=== PATIENT | male | born 1950 | race Caucasian/White ===

== ENCOUNTER 2024-02-22 22:03 | Emergency (ER) | payer OTHER ==
[2024-02-22 22:52] LABS: Hematocrit 19.5 % (39.6-49.0); Hemoglobin 6.8 g/dL (13.6-17.9); Nucleated Red Blood Cells % 0.3 % (0-0)
[2024-02-22 22:57] LABS: Absolute Lymphocytes (CBC) 0.2 K/uL (0.7-4.9); Absolute Monocytes 0.4 K/uL (0.1-1.3); Absolute Neutrophil 0.7 K/uL (1.8-8.0); Basophils % 0.1 % (0-1.3); Eosinophils % 0.9 % (0-4.4); MCH 28.3 pg (27.0-35.0); MCHC 34.9 g/dL (32.0-36.0); MCV 80.9 fL (80-100); MPV 6.8 fL (7.6-11.3); Monocytes % 27.2 % (3.3-12.3); Neutrophils % 53.8 % (41.7-73.7); Platelets 149 thou/uL (152-406); RBC Red Blood Cell Count 2.41 M/uL (4.33-5.43); Red Cell Distribution Width 21.5 % (12.1-15.2)
[2024-02-22 23:01] LABS: PT Prothrombin Time 18.8 SECONDS (9.4-12.5); PTT, Activated Partial Thromb 30.9 SECONDS (24.3-36.9); Protime INR 1.7
[2024-02-22 23:13] LABS: Albumin 2.2 g/dL (3.4-5.0); Albumin/Globulin Ratio 0.6 (1.1-1.8); Anion Gap 12.2 mEq/L (5.0-15.0); Bilirubin Total 0.7 mg/dL (0.2-1.0); Protein, Total 6.2 g/dL (6.4-8.2)
[2024-02-22 23:17] LABS: Potassium 4.2 mEq/L (3.5-5.1)
--- OUTSIDE RECORDS SUMMARY | 2024-02-22 23:26 | XMS REPORT | Continuity of Care Document ---
Author Name Unknown Address [address] [facility] [address] [place] [address] [facility] Address [address] [facility] [place] [address] Care Team Providers Care Software Computer Specialist Name Role Phone Cass VILLARREAL, Meek Vigil Primary Care Physician [phone] Charlee Hayes MD Attending Clinician [phone] Winnie Burnham MD Attending Clinician [phone] Preeti PABON, Westley Martin Attending Clinician Guanako Cazares [facility], Roxie Attending Clinician Tyrone Kaba MD Attending Clinician [phone] Rehreruthie DO, Rajat Oliveira Attending Clinician + [phone] Liliana Kim DO Attending Clinician [phone] Carlos VILLARREAL, Maksim Newell Attending Clinic jerrell Ely Hernandez MD Attending Clinician [phone] Carlos [facility], Brenda Begum Attending Clinicia n Joleen Rendon RN, Renetta Attending Clinician Unavailable Charles VILLARREAL, Victor Hugo Kennedy Attending Clinician [phone] Katya Marquez Attending Clinician Unavailab Humaira PABON, Jennifer Attending Clinician Unavailable Archana LIEBERMAN, Sandra Attending Clinician Mercedes Calixto MD PhD, Gale Attending Clinician [phone] Jonh Bacon MD Attending Clinician [phone] Catarino Kim MD Attending Clinician [phone] Kenya Duran MD Attending Clinician [phone] Paco Shoemaker MD Attending Clinician [phone] Jaswinder Staples MD Attending Clinician [phone] Tommy Larose MD Attending Clinician + [phone] Meek Odell MD Attending Clinician [phone] Ondina Heredia Attending Clinician Unavailable Jennifer Oviedo MA Attending Clinician Unavailable LILIANA KIM Admitting Clinician Unavailable CATARINO KIM Admitting Clinician Unavailable Payers Payer Name Policy Type Policy Number Effective Date Expirati on Date Source Problems Condition Name Condition Details Condition Category Status Onset Date Resolution Date Last Treatment Date Treating Clinician Comments Source Paroxysmal atrial fibrillati on Paroxysmal atrial fibrillati on Disease Active 2023-05 0 00:00: [address] Nonrheumat ic aortic valve stenosis Nonrheumat ic aortic valve stenosis Disease Active 2023-05 0-14 00:00: [address] ILD (interstit ial lung disease) ILD (interstit ial lung disease) Disease Active 01-27 00:00: [address] Lung cancer Lung cancer Disease Active 9- 00:00: [address] SOB (shortness of breath) SOB (shortness of breath) Disease Active 01-23 00:00: [address] 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 MARIO total occludedL IC 60% [facility] TIA (transient ischemic attack) TIA (transient ischemic attack) Disease Active 1- 00:00: [address] Social History Social Habit Start Date Stop Date Quantity Comments Source Sexual orientation H ailyn Dumont History of Social function 2024-02-16 00:00:00 2024-02-16 00:00:00 Jeronimo Dumont Tobacco use and exposure 2024-02-12 00:00:00 2024-02-12 00:00:00 Smokeless tobacco non-user Jeronimo Dumont Cigarettes smoked current (pack per day) - Reported 2024-02-12 00:00:00 2024-02-12 00:00:00 Jeronimo Dumont Cigarette pack-years 2024-02-12 00:00:00 2024-02-12 00:00:00 Jeronimo Dumont Alcoholic beverage intake 2024-02-12 00:00:00 2024-02-12 00:00:00 Current drinker of alcohol (finding) Jeronimo Dumont Alcohol intake 2023-01-11 00:00:00 2023-01-11 00:00:00 .14 /d Jeronimo Dumont Alcohol Comment 2022-02-10 00:00:00 2022-02-10 00:00:00 daily Jeronimo Dumont History of tobacco use 1983-11-20 00:00:00 2018-11-19 00:00:00 Current smoker Jeronimo Dumont Sex assigned at 1950 00:00:00 1950 00:00:00 Jeronimo Dumont Smoking Status Start Date Stop Date Source Ex-smoker 2024-02-12 00:00:00 2024-02-12 00:00:00 H ailyn Dumont Medications Ordered Medication Name Filled Medication Name Start Date Stop Date Current Medication? Ordering Clinician Indication Dosage Frequency Signature (SIG) Comments Components Source ezetimibe (ZETIA) 10 mg tablet 2023-05 18:15: 05 02-11 00:00 :00 No 10mg QD Take 1 tablet (10 mg total) by mouth daily. Jeronimo Rankin aspirin (ECOTRIN) 81 MG enteric coated tablet 2023-05 18:14: 58 02-11 00:00 :00 No 81mg QD Take 1 tablet (81 mg total) by mouth daily. Jeronimo Rankin st fexofenadin e HCl (MUCINEX ALLERGY ORAL) 2023-05 09:20: 30 Yes Q.5D Take by mouth 2 (two) times a day as needed. [facility] PACLItaxel (TAXOL) 6 mg/mL chemo injection 2023-05 014 09:20: 30 Yes Q21D Infuse into a venous catheter every 21 days. [facility] benzonatate (TESSALON) 200 MG capsule 2023-05 00:00: 00 Yes 200mg Q.[id number] 3D Take 1 capsule (200 mg total) by mouth 3 (three) times a day as needed. [facility] ergocalcife rol, vitamin D2, (VITAMIN D2 ORAL) 2023-05 16:10: 00 Yes 1{capsu le} QD Take 1 capsule by mouth daily. [facility] amIODarone (PACERONE) 200 MG tablet 2023-05 00:00: 00 03-02 23:59 :00 Yes 200mg QD Take 1 tablet (200 mg total) by mouth daily for 30 days. [facility] rivaroxaban (XARELTO) 20 mg tablet 2023-05 16:10: 08 01-30 00:00 :00 No 20mg QD Take 1 tablet (20 mg total) by mouth daily. [facility] therapeutic multivitami n (THERAGRAN) tablet 2023-05 16:10: 04 Yes 1{tbl} QD Take 1 tablet by mouth daily. [facility] apixaban (ELIQUIS) 2.5 mg tablet 2023-05 00:00: 00 Yes 2.5mg Q.5D Take 1 tablet (2.5 mg total) by mouth 2 (two) times a day. [facility] rosuvastati n (CRESTOR) 20 mg tablet 2023-05 00:00: 00 01-30 23:59 :00 Yes 20mg QD Take 1 tablet (20 mg total) by mouth daily. [facility] metoprolol succinate XL (TOPROL-XL) 25 mg 24 hr tablet 2023-05 00:00: 00 01-30 23:59 :00 Yes 25mg QD Take 1 tablet (25 mg total) by mouth daily. [facility] simvastatin (ZOCOR) 80 MG tablet 2023-05 00:00: 01-30 00:00 :00 No 80mg QD Take 1 tablet (80 mg total) by mouth nightly for 120 days. Jeronimo Rankin alcohol swabs (Alcohol Pads) pads, medicated 2023-05 00:00: 00 Yes Use 1 test strip 3 times per day for glucose testing Jeronimo [facility] lancets 33 gauge misc 2023-05 00:00: 00 Yes TIA (transient ischemic attack) Use 1 lancet 3 times per day for glucose testing [place] [facility] blood sugar diagnostic strips (glucose blood) strip test strips 2023-05 00:00: 00 Yes TIA (transient ischemic attack) Use with glucometer 3 times a day Jeronimo Woodgerald [facility] metFORMIN (GLUCOPHAGE ) 500 mg tablet 2023-05 00:00: 00 Yes 500mg Q.5D Take 1 tablet (500 mg total) by mouth 2 (two) times a day with meals. [facility] blood-gluco se meter kit 2023-05 00:00: 00 01-29 23:59 :00 Yes TIA (transient ischemic attack) Use as instructed Jeronimo Woodgerald [facility] ondansetron ODT (ZOFRAN-ODT ) 8 MG disintegrat ing tablet 01-28 00:00: 00 02-27 23:59 :00 Yes CINV (chemothera py-induced nausea and vomiting) 8mg Q8H Dissolve 1 tablet (8 mg total) on the tongue every 8 (eight) hours as needed for nausea or vomiting for up to 30 days. [facility] prochlorper azine (Compazine) 5 MG tablet 01-28 00:00: 00 02-27 23:59 :00 Yes 5mg Q6H Take 1 tablet (5 mg total) by mouth every 6 (six) hours as needed for nausea or vomiting for up to 30 days. Jeronimo Woodgerald [facility] doxycycline (VIBRAMYCIN ) 100 MG capsule 01-23 18:42: 11 01-23 00:00 :00 No 100mg Q.5D Take 1 capsule (100 mg total) by mouth 2 (two) times a day. [facility] codeine-gua ifenesin (GUAIFENESI N AC) 10-100 mg/5 mL liquid 01-22 00:00: 00 02-11 00:00 :00 No chronic pain 5mL Q.[id number] 3D Take 5 mL by mouth 3 (three) times a day as needed for cough .acute pain, chronic pain. [facility] HYDROcodone -acetaminop hen (NORCO) 5-325 mg per tablet 01-11 00:00: 00 02-11 00:00 :00 No chronic pain 1{tbl} Q8H Take 1 tablet by mouth every 8 (eight) hours as needed for severe pain .acute pain, chronic pain. Max Daily Amount: 3 tablets [facility] simvastatin (ZOCOR) 80 MG tablet 01-04 16:39: 26 01-04 00:00 :00 No 40mg QD Take 0.5 tablets (40 mg total) by mouth nightly. [facility] simvastatin (ZOCOR) 80 MG tablet 01-04 00:00: 00 01-30 00:00 :00 No 80mg QD Take 1 tablet (80 mg total) by mouth nightly for 30 days. [facility] ezetimibe (ZETIA) 10 mg tablet 01-19 10:40: 05 Yes 10mg QD Take 10 mg by mouth daily. [facility] therapeutic multivitami n (THERAGRAN) tablet 01-19 10:40: 05 Yes 1{tbl} QD Take 1 tablet by mouth daily. [facility] simvastatin (ZOCOR) 80 MG tablet 01-19 10:40: 05 Yes 40mg QD Take 40 mg by mouth nightly. [facility] aspirin (ECOTRIN) 81 MG enteric coated tablet 01-19 10:40: 05 Yes 162mg QD Take 162 mg by mouth daily. [facility] Vital Signs Vital Name Observation Time Observation Value Comments S melody Systolic blood pressure 2024-02-16 14:20:44 125 mm[Hg] Jeronimo hargrove Diastolic blood pressure 2024-02-16 14:20:44 65 mm[Hg] Jeronimo hargrove Heart rate 2024-02-16 14:20:44 87 /min Tj Woodist Body temperature 2024-02-16 14:20:44 36.28 Nora Jeronimo Dumont Respiratory rate 2024-02-16 14:20:44 19 /min Jeronimo Denominational Oxygen saturation in Arterial blood by Pulse oximetry 2024-02-16 14:20:44 99 /min Jeronimo hargrove Body height 2024-02-15 14:40:00 180.3 cm Ann page [facility]ational Body weight 2024-02-15 14:40:00 89.359 kg Ann ton [facility] BMI 2024-02-15 14:40:00 27.48 kg/m2 Ann ton [facility] Systolic blood pressure 2023-01-11 10:18:00 133 mm[Hg] Jeronimo Muñoz odist Diastolic blood pressure 2023-01-11 10:18:00 77 mm[Hg] Jeronimo Muñoz odist Heart rate 2023-01-11 10:16:00 59 /min Annmagnus lacey [facility] Body temperature 2023-01-11 10:16:00 36.67 Nora Jeronimo Denominational Body height 2023-01-11 10:16:00 180.3 cm Ann page [facility] Body weight 2023-01-11 10:16:00 104.055 kg Ann page [facility] BMI 2023-01-11 10:16:00 31.99 kg/m2 Ann page [facility] Oxygen saturation in Arterial blood by Pulse oximetry 2023-01-11 10:16:00 98 /min Jeronimo hargrove Procedures Procedure Date / Time Performed Performing Clinician Source CBC WITH PLATELET AND DIFFERENTIAL 2024-02-15 10:01:00 Charlee Hayes COMPREHENSIVE METABOLIC PANEL 2024-02-15 10:01:00 Charlee Hayes MAGNESIUM LEVEL 2024-02-15 10:01:00 Charlee Hayes ESTIMATED GFR 2024-02-15 10:01:00 Charlee Hayes ECG 12-LEAD 2024-02-12 11:32:34 Tyrone Sierra POC GLUCOSE 2024-01-31 12:31:00 Ely Hernandez POC GLUCOSE 2024-01-31 08:52:00 Ely Hernandez ECG 12-LEAD 2024-01-31 04:42:48 Ely Cook [facility] CBC WITH PLATELET AND DIFFERENTIAL 2024-01-31 04:21:00 Maksim Gonzalez COMPREHENSIVE METABOLIC PANEL 2024-01-31 04:21:00 Maksim Gonzalez [facility] MAGNESIUM LEVEL 2024-01-31 04:21:00 Izaiah Gonzalez Denominational ESTIMATED GFR 2024-01-31 04:21:00 Izaiah Gonzalez Denominational POC GLUCOSE 2024-01-30 21:34:00 Izaiah Gonzalezd Reece Decker [facility] POC GLUCOSE 2024-01-30 17:01:00 Izaiah Gonzalez [facility]ational POC GLUCOSE 2024-01-30 13:05:00 Izaiah Gonzalez [facility]ominational ECG 12-LEAD 2024-01-30 10:14:38 Ely Cook [facility]ational POC GLUCOSE 2024-01-30 09:39:00 Izaiah Gonzalez [facility]ominational TTE COMPLETE, W CONTRAST, W DOPPLER (C8929) 2024-01-30 09:18:12 Ely Cook CBC WITH PLATELET AND DIFFERENTIAL 2024-01-30 03:45:00 Maksim Gonzalez COMPREHENSIVE METABOLIC PANEL 2024-01-30 03:45:00 Maksim Gonzalez [facility]ational MAGNESIUM LEVEL 2024-01-30 03:45:00 Izaiah Gonzalez ESTIMATED GFR 2024-01-30 03:45:00 Izaiah Gonzalez Denominational POC GLUCOSE 2024-01-29 21:18:00 Izaiah Gonzalez [facility]ominational ECG 12-LEAD 2024-01-29 20:34:22 Ely Cook [facility]ational POC GLUCOSE 2024-01-29 18:02:00 Izaiah Gonzalez [facility] IR PORT PLACEMENT 2024-01-29 14:18:00 Winnie Burnham [facility] DURABLE MEDICAL EQUIPMENT 2024-01-29 13:43:44 Maksim Rollins Denominational POC GLUCOSE 2024-01-29 09:13:00 Izaiah Gonzalez Denominational NT-PROBNP 2024-01-29 03:54:00 Maria E Lyles Denominational CBC WITH PLATELET AND DIFFERENTIAL 2024-01-29 03:54:00 Maksim Gonzalez COMPREHENSIVE METABOLIC PANEL 2024-01-29 03:54:00 Maksim Gonzalez [facility]ational MAGNESIUM LEVEL 2024-01-29 03:54:00 Izaiah Gonzalez ESTIMATED GFR 2024-01-29 03:54:00 Izaiah Gonzalez [facility]ominational POC GLUCOSE 2024-01-28 21:15:00 Izaiah Gonzalez Denominational POC GLUCOSE 2024-01-28 18:31:00 Izaiah Gonzalez Denominational NT-PROBNP 2024-01-28 14:23:00 Maria E Lyles Denominational POC GLUCOSE 2024-01-28 12:29:00 Izaiah Gonzalez XR CHEST 1 VW PORTABLE 2024-01-28 10:54:05 Judson Burnham Denominational POC GLUCOSE 2024-01-28 08:32:00 Izaiah Gonzalez [facility]ominational MAGNESIUM LEVEL 2024-01-28 06:29:00 Winnie Burnham Denominational PHOSPHORUS LEVEL 2024-01-28 06:29:00 Winnie Burnham Denominational CBC WITH PLATELET AND DIFFERENTIAL 2024-01-28 06:29:00 Maksim Gonzalez [facility]ominational COMPREHENSIVE METABOLIC PANEL 2024-01-28 06:29:00 Maksim Gonzalez Denominational ESTIMATED GFR 2024-01-28 06:29:00 Izaiah Gonzalez [place] [facility] POC GLUCOSE 2024-01-27 22:05:00 Izaiah Gonzalez Decker [facility] POC GLUCOSE 2024-01-27 18:42:00 Izaiah Gonzalez [place] [facility] POC GLUCOSE 2024-01-27 13:25:00 Izaiah Gonzalez [place] [facility] POC GLUCOSE 2024-01-27 08:31:00 Izaiah Gonzalez [place] [facility] CBC WITH PLATELET AND DIFFERENTIAL 2024-01-27 05:20:00 Liliana Kim Denominational BASIC METABOLIC PANEL 2024-01-27 05:20:00 Liliana Kim [facility]ational HEPATIC FUNCTION PANEL 2024-01-27 05:20:00 Maksim Norton Denominational MAGNESIUM LEVEL 2024-01-27 05:20:00 Winnie Burnham Denominational PHOSPHORUS LEVEL 2024-01-27 05:20:00 Winnie Burnham Denominational ESTIMATED GFR 2024-01-27 05:20:00 Liliana Kim Denominational POC GLUCOSE 2024-01-26 21:30:00 Izaiah Gonzalez [facility] POC GLUCOSE 2024-01-26 17:58:00 Izaiah Gonzalez [place] [facility] POC GLUCOSE 2024-01-26 12:51:00 Izaiah Gonzalez [facility]ominational SIX MINUTE WALK W/ PULSE OXIMETRY 2024-01-26 12:30:25 Maksim Gonzalez Denominational POC GLUCOSE 2024-01-26 08:31:00 Izaiah Gonzalez [facility] POC GLUCOSE 2024-01-26 02:59:00 Izaiah Gonzalez [place] [facility] CBC WITH PLATELET AND DIFFERENTIAL 2024-01-26 02:44:00 Liliana Kim [facility]ominational BASIC METABOLIC PANEL 2024-01-26 02:44:00 Liliana Kim ESTIMATED GFR 2024-01-26 02:44:00 Liliana Kimu willard Dumont MAGNESIUM LEVEL 2024-01-26 02:44:00 Liliana Kim CBC WITH PLATELET AND DIFFERENTIAL 2024-01-25 21:06:00 Charlee Hayes COMPREHENSIVE METABOLIC PANEL 2024-01-25 21:06:00 Charlee Hayes MAGNESIUM LEVEL 2024-01-25 21:06:00 Charlee Hayes HEPATITIS B SURFACE ANTIGEN 2024-01-25 21:06:00 Charlee Hayes HEPATITIS B CORE ANTIBODY TOTAL 2024-01-25 21:06:00 Charlee Hayes HEPATITIS B SURFACE ANTIBODY 2024-01-25 21:06:00 Charlee Hayes ESTIMATED GFR 2024-01-25 21:06:00 Charlee Hayes POC GLUCOSE 2024-01-25 21:06:00 Izaiah Gonzalez POC GLUCOSE 2024-01-25 17:29:00 Izaiah Gonzalez PICC INSERTION REQUEST 2024-01-25 15:28:44 Nereyda Dye XR PICC CHEST PORTABLE 2024-01-25 15:03:00 Maksim Norton POC GLUCOSE 2024-01-25 11:10:00 Izaiah Gonzalez POC GLUCOSE 2024-01-25 07:41:00 Izaiah Gonzalez [facility]ominational POC GLUCOSE 2024-01-25 05:18:00 Izaiah Gonzalez CBC WITH PLATELET AND DIFFERENTIAL 2024-01-25 05:17:00 Liliana Kim BASIC METABOLIC PANEL 2024-01-25 05:17:00 Liliana Kim MAGNESIUM LEVEL 2024-01-25 05:17:00 Liliana Kim PHOSPHORUS LEVEL 2024-01-25 05:17:00 Liliana Kim HEMOGLOBIN A1C 2024-01-25 05:17:00 Liliana Kim HEPATIC FUNCTION PANEL 2024-01-25 05:17:00 Liliana Kim ESTIMATED GFR 2024-01-25 05:17:00 Liliana Kimu ston Denominational POC GLUCOSE 2024-01-24 23:37:00 Liliana Kim LACTIC ACID LEVEL - NOW AND REPEAT 2X EVERY 3 HOURS 2024-01-24 20:25:00 Rehrer, Rajat Dumont TROPONIN T 2024-01-24 20:25:00 Rehrer, Rajat Dumont TROPONIN T 2024-01-24 17:38:00 Rehrer, Rajat Dumont LACTIC ACID LEVEL - NOW AND REPEAT 2X EVERY 3 HOURS 2024-01-24 17:38:00 Rehrer, Rajat Dumont CTA CHEST FOR BLEEDING 2024-01-24 17:36:46 Rehrer, Freda Dumont RESPIRATORY PATHOGEN PANEL WITH COVID-19 RT-PCR 2024-01-24 14:40:00 Rehrer, Rajat Dumont CBC WITH PLATELET AND DIFFERENTIAL 2024-01-24 14:37:00 Rehrer, Rajat Dumont PROTHROMBIN TIME WITH INR 2024-01-24 14:37:00 Rehrer, Rajat Dumont PARTIAL THROMBOPLASTIN TIME (PTT) 2024-01-24 14:37:00 Rehrer, Rajat Dumont URINALYSIS SCREEN AND MICROSCOPY, WITH REFLEX TO CULTURE 2024-01-24 14:37:00 Manasrer, Rajat Dumont COMPREHENSIVE METABOLIC PANEL 2024-01-24 14:37:00 Rehrer, Rajat Dumont PHOSPHORUS LEVEL 2024-01-24 14:37:00 Rehrer, Rajat Dumont MAGNESIUM LEVEL 2024-01-24 14:37:00 Rehrer, Rajat Dumont LACTIC ACID LEVEL - NOW AND REPEAT 2X EVERY 3 HOURS 2024-01-24 14:37:00 RehrerRajat TROPONIN T 2024-01-24 14:37:00 RehrerRajat NT-PROBNP 2024-01-24 14:37:00 Rehrer, Rajat Dumont ESTIMATED GFR 2024-01-24 14:37:00 RehrerRajat URINE CULTURE 2024-01-24 13:22:00 RehrerRajat ECG ED PRELIMINARY INTERPRETATION 2024-01-24 13:17:34 RehreRajat watson HI CRITICAL CARE ILL/INJURED PATIENT INIT 30-74 MIN 2024-01-24 13:17:30 RehreRajat watson ECG 12-LEAD 2024-01-24 13:15:36 RehrerRajat COMPREHENSIVE METABOLIC PANEL 2024-01-12 15:37:00 Charlee Hayes CBC WITH PLATELET AND DIFFERENTIAL 2024-01-12 15:37:00 Charlee Hayes PARTIAL THROMBOPLASTIN TIME (PTT) 2024-01-12 15:37:00 Charlee Hayes PROTHROMBIN TIME WITH INR 2024-01-12 15:37:00 Charlee Hayes ESTIMATED GFR 2024-01-12 15:37:[address] SKULL BASE TO MID THIGH 2024-01-05 16:05:03 Steffi Villatoro POC GLUCOSE 2024-01-05 14:36:00 Catarino Kim MRI BRAIN W WO CONTRAST 2024-01-05 13:56:[address] ABDOMEN PELVIS W CONTRAST 2024-01-05 12:05:18 Winnie Burnham CBC WITH PLATELET AND DIFFERENTIAL 2024-01-05 06:05:00 Liliana Kim BASIC METABOLIC PANEL 2024-01-05 06:05:00 Liliana Kim MAGNESIUM LEVEL 2024-01-05 06:05:00 Catarino Kim PHOSPHORUS LEVEL 2024-01-05 06:05:00 Catarino Kim [facility]ational ESTIMATED GFR 2024-01-05 06:05:00 Liliana Kim XR CHEST 1 VW PORTABLE 2024-01-04 17:55:36 Jaswinder Staples CYTOLOGY (NON-GYNECOLOGICAL) REQUEST 2024-01-04 17:20:00 Catarino Kim CYTOLOGY (NON-GYNECOLOGICAL) REQUEST 2024-01-04 17:16:00 Catarino Kim CYTOLOGY (NON-GYNECOLOGICAL) REQUEST 2024-01-04 17:14:00 Catarino Kim CYTOLOGY (NON-GYNECOLOGICAL) REQUEST 2024-01-04 17:10:00 Catarino Kim OR FL > 1 HOUR 2024-01-04 17:05:00 Jaswinder Staples CYTOLOGY (NON-GYNECOLOGICAL) REQUEST 2024-01-04 16:20:00 Catarino Kim ANESTHESIA INTUBATION 2024-01-04 16:05:00 Joel Lay BRONCHOSCOPY 2024-01-04 15:56:00 Jaswinder Staples POC GLUCOSE 2024-01-04 14:04:00 Catarino Kim SURGICAL PATHOLOGY REQUEST 2024-01-04 09:10:00 Bob Kim CBC WITH PLATELET AND DIFFERENTIAL 2024-01-04 06:02:00 Liliana Kim BASIC METABOLIC PANEL 2024-01-04 06:02:00 Liliana Kim MAGNESIUM LEVEL 2024-01-04 06:02:00 Catarino Kim PHOSPHORUS LEVEL 2024-01-04 06:02:00 Catarino Kim FERRITIN LEVEL 2024-01-04 06:02:00 Catarino Kim Den[facility]ational FOLATE LEVEL 2024-01-04 06:02:00 Catarino Kim Den[facility]ational TOTAL IRON BINDING CAPACITY 2024-01-04 06:02:00 Catarino Kim VITAMIN B12 LEVEL 2024-01-04 06:02:00 Catarino Kim ESTIMATED GFR 2024-01-04 06:02:00 Liliana Kim TTE COMPLETE, W CONTRAST, W DOPPLER (C8929) 2024-01-03 15:48:18 Davey Newell VENOUS BLOOD GAS 2024-01-03 06:32:00 Liliana Kim SPUTUM CULTURE 2024-01-03 04:47:00 Catarino Kim GRAM STAIN 2024-01-03 04:47:00 Catarino Kim URINALYSIS, AUTOMATED WITH MICROSCOPY 2024-01-03 04:47:00 Catarino Kim CBC WITH PLATELET AND DIFFERENTIAL 2024-01-03 04:37:00 Liliana Kim BASIC METABOLIC PANEL 2024-01-03 04:37:00 Liliana Kim MAGNESIUM LEVEL 2024-01-03 04:37:00 Liliana Kim [place] [facility] PHOSPHORUS LEVEL 2024-01-03 04:37:00 Liliana Kim HEMOGLOBIN A1C 2024-01-03 04:37:00 Liliana Kim LIPID PANEL 2024-01-03 04:37:00 Liliana Kim SEDIMENTATION RATE 2024-01-03 04:37:00 Liliana Kim C-REACTIVE PROTEIN 2024-01-03 04:37:00 Liliana Kim ESTIMATED GFR 2024-01-03 04:37:00 Liliana Kim LEGIONELLA URINARY ANTIGEN 2024-01-02 18:58:00 Kain Kim STREPTOCOCCUS PNEUMONIAE URINARY ANTIGEN 2024-01-02 18:58:00 Liliana Kim CARCINOEMBRYONIC ANTIGEN (CEA) 2024-01-02 18:02:00 Liliana Kim CANCER ANTIGEN 125 2024-01-02 18:02:00 Liliana Kim LDH 2024-01-02 18:02:00 Liliana Kim [place] [facility] PROCALCITONIN 2024-01-02 18:02:00 Liliana Kim Sally ston Denominational TROPONIN T 2024-01-02 17:32:[address] ANGIOGRAM PE CHEST 2024-01-02 16:03:50 Portales rTommy ECG ED PRELIMINARY INTERPRETATION 2024-01-02 15:27:16 Coreen Montejo RESPIRATORY PATHOGEN PANEL WITH COVID-19 RT-PCR 2024-01-02 14:33:00 Coreen Montejo CBC WITH PLATELET AND DIFFERENTIAL 2024-01-02 14:32:00 Coreen Montejo COMPREHENSIVE METABOLIC PANEL 2024-01-02 14:32:00 Coreen Montejo NT-PROBNP 2024-01-02 14:32:00 Veronica Montejo TROPONIN T 2024-01-02 14:32:00 Veronica Montejo ESTIMATED GFR 2024-01-02 14:32:00 Veronica Montejo ECG 12-LEAD 2024-01-02 13:51:59 ManasrerRajat US CAROTID DUPLEX BILATERAL 2023-01-11 10:26:21 Jonh Bacon Plan of Care Planned Activity Planned Date Details Comments Source Future Scheduled Test 2022-12-30 00:00:00 COVID-19 VACCINE ( season) [code = COVID-19 VACCINE ( season)] Jeronimo Dumont Future Scheduled Test 2022-12-30 00:00:00 INFLUENZA VACCINE (#1) [code = INFLUENZA VACCINE (#1)] Jeronimo Dumont Future Scheduled Test 2022-12-30 00:00:00 COVID-19 VACCINE ( season) [code = COVID-19 VACCINE ( season)] [facility] Scheduled Test 2022-12-30 00:00:00 INFLUENZA VACCINE (#1) [code = INFLUENZA VACCINE (#1)] [facility] Scheduled Test 2022-12-30 00:00:00 COVID-19 VACCINE ( season) [code = COVID-19 VACCINE ( season)] [facility] Scheduled Test 2022-12-30 00:00:00 INFLUENZA VACCINE (#1) [code = INFLUENZA VACCINE (#1)] [facility] Scheduled Test 2014 00:00:00 65+ PNEUMOCOCCAL VACCINE (1 - PCV) [code = 65+ PNEUMOCOCCAL VACCINE (1 - PCV)] [facility] Scheduled Test 2014 00:00:00 65+ PNEUMOCOCCAL VACCINE (1 - PCV) [code = 65+ PNEUMOCOCCAL VACCINE (1 - PCV)] [facility] Scheduled Test 2014 00:00:00 65+ PNEUMOCOCCAL VACCINE (1 - PCV) [code = 65+ PNEUMOCOCCAL VACCINE (1 - PCV)] [facility] Scheduled Test 1999 00:00:00 SHINGLES VACCINES (1 of 2) [code = SHINGLES VACCINES (1 of 2)] [facility] Scheduled Test 1999 00:00:00 SHINGLES VACCINES (1 of 2) [code = SHINGLES VACCINES (1 of 2)] [facility] Scheduled Test 1999 00:00:00 SHINGLES VACCINES (1 of 2) [code = SHINGLES VACCINES (1 of 2)] [facility] Scheduled Test 1994 00:00:00 Screening for malignant neoplasm of colon (procedure) [code = [id number]] [facility] Scheduled Test 1994 00:00:00 Screening for malignant neoplasm of colon (procedure) [code = [id number]] [facility] Scheduled Test 1994 00:00:00 Screening for malignant neoplasm of colon (procedure) [code = [id number]] [facility] Scheduled Test 1994 00:00:00 Screening for malignant neoplasm of colon (procedure) [code = [id number]] [facility] Scheduled Test 1994 00:00:00 Screening for malignant neoplasm of colon (procedure) [code = [id number]] [facility] Scheduled Test 1994 00:00:00 Screening for malignant neoplasm of colon (procedure) [code = [id number]] [facility] Sched[facility] Test 1967 00:00:00 Hepatitis C screening (procedure) [code = 355548399] [facility] 1967 00:00:00 Hepatitis C screening (procedure) [code = 954279045] [facility] 1967 00:00:00 Hepatitis C screening (procedure) [code = 907214948] [facility] 1949 00:00:00 Screening for malignant neoplasm of colon (procedure) [code = 760025270] [facility]uled Test 1949 00:00:00 Screening for malignant neoplasm of colon (procedure) [code = 889991936] [place] [facility] Scheduled Test 1949 00:00:00 Screening for malignant neoplasm of colon (procedure) [code = 276414095] [place] [facility] Scheduled Test 1949 00:00:00 Screening for malignant neoplasm of colon (procedure) [code = 686231740] [facility] [facility] Scheduled Test 1949 00:00:00 Screening for malignant neoplasm of colon (procedure) [code = 665943168] [place] [facility] Scheduled Test 1949 00:00:00 Screening for malignant neoplasm of colon (procedure) [code = 699331457] [place] [facility] Scheduled Test 1949 00:00:00 Screening for malignant neoplasm of colon (procedure) [code = 141838016] [facility] [facility] Sched[facility] Test 1949 00:00:00 Screening for malignant neoplasm of colon (procedure) [code = 956189132] [facility] [facility] Scheduled Test 1949 00:00:00 Screening for malignant neoplasm of colon (procedure) [code = 046694874] [facility] En[facility] Start Date/Time End Date/Time Encounter Type Admission Type Attending [facility] Care Department Encounter ID Source 2024-02-16 00:00:00 2024-02-16 00:00:00 Outpatient CHARLEE AHYES [facility] [id number] Jeronimo Rankin 2024-02-15 00:00:00 2024-02-15 00:00:00 Outpatient CHARLEE HAYES [facility] [id number] [facility] 2024-02-15 00:00:00 2024-02-15 00:00:00 Outpatient ABIGAIL CHARLEE [facility] [id number] [facility] 2024-02-12 00:00:00 2024-02-12 00:00:00 Outpatient KATHYTYRONE RAMOS [facility] [id number] [facility] 2024-02-01 00:00:00 2024-02-01 00:00:00 Outpatient ELISHACHELSEARuthie CHARLEE [facility] [id number] [facility] 2024-01-31 00:00:00 2024-01-31 00:00:00 Outpatient CHARLEE HAYES [facility] [id number] [facility] 2024-01-24 00:00:00 2024-01-31 00:00:00 Inpatient ELY HERNANDEZ [facility] [id number] [facility] 2024-01-23 00:00:00 2024-01-23 00:00:00 Outpatient VICTOR HUGO PATEL [facility] [id number] [facility] 2024-01-19 00:00:00 2024-01-20 00:00:00 Outpatient VICTOR HUGO PATEL [facility] [id number] [facility] 2024-01-18 00:00:00 2024-01-18 00:00:00 Outpatient CHARLEE HAYES [facility] [id number] [facility] 2024-01-12 00:00:00 2024-01-12 00:00:00 Outpatient CHARLEE HAYES [facility] [id number] [facility] 2024-01-12 00:00:00 2024-01-12 00:00:00 Outpatient CHARLEE HAYES [facility] [id number] [facility] 2024-01-12 00:00:00 2024-01-12 00:00:00 Outpatient CHARLEE HAYES [facility] [id number] [facility] 2024-01-12 00:00:00 2024-01-12 00:00:00 Outpatient CHARLEE HAYES [facility] [id number] [facility] 2024-01-02 00:00:00 2024-01-05 00:00:00 Inpatient CATARINO KIM [facility] [id number] [facility] 2023-03-06 00:00:00 2023-03-06 00:00:00 Telephone Jonh Bacon Joel [facility] [id number] [facility] 2023-01-11 10:45:00 2023-01-11 11:10:22 Office Visit Jonh Bacon Joel [facility] [id number] [facility] 2023-01-11 00:00:00 2023-01-11 00:00:00 Orders Only Renetta Rendon [facility] [id number] [facility] 2023-01-11 00:00:00 2023-01-11 00:00:00 Outpatient JONH BACON [facility] [id number] [facility] 2023-01-11 00:00:00 2023-01-11 00:00:00 Outpatient JONH BACON [facility] [id number] [facility] 2023-01-10 00:00:00 2023-01-10 00:00:00 Telephone Ivelisse Jennifer [facility] [id number] [facility] 2022-02-10 00:00:00 2022-02-10 00:00:00 Outpatient JONH BACON [facility] [id number] [facility] 2022-02-03 00:00:00 2022-02-03 00:00:00 Outpatient JONH BACON [facility] [id number] [facility] 2022-01-19 00:00:00 2022-01-19 00:00:00 Outpatient JONH BACON [facility] [id number] [facility] 2022-01-19 00:00:00 2022-01-19 00:00:00 Outpatient JONH BACON [facility] [id number] [facility] 2021-01-20 00:00:00 2021-01-20 00:00:00 Outpatient JONH BACON [facility] [id number] [facility] 2021-01-20 00:00:00 2021-01-20 00:00:00 Outpatient JONH BACON [facility] [id number] [facility] 2020-09-16 00:00:00 2020-09-16 00:00:00 Outpatient TOMMY LAROSE [facility] [id number] [place] [facility] 2019-11-06 00:00:00 2019-11-06 00:00:00 Outpatient JONH BACON [facility] [id number] [place] [facility] 2019-11-06 00:00:00 2019-11-06 00:00:00 Outpatient JONH BACON [facility] [id number] [facility] Results Test Description Test Time Test Comments Results Result Co mments Source [facility] O2 [id number] 20:35:13* Test Item Value Reference Range Interpretation Comments SUPPLIER NAME (test code = 6415) [facility] (test code = 6416) ORDER STATUS (test code = 6417) Delivery Successful DELIVERY NOTE (test code = 6419) REQUESTED DELIVEY DATE (test code = 6420) 01/29/2024 ITEM DESCRIPTION (test code = 6423) Portable Tank with Conserving Device / Pulse Dose Qty: 1Instructions: Patient has already been titrated/evaluated to a specific settingConserving Device Settin EXPECTED DELIVERY DATE (test code = 6421) 01/31/2024 ACTUAL DELIVERY DATE (test code = 6422) 01/31/2024 [facility] [id number] 12:33:00* Test Item Value Reference Range Interpretation Comme nts POC glucose (test code = 10072-1) 262 mg/dL 65-99 H Vehicle Insurance Agent Name: Magnus Lindsay ID: [id number]: [facility] Notified plater apprentice Interpretation (test code = 20861-5) Abnormal [facility] [id number] 12:33:00* Test Item Value Reference Range Interpretation Comme nts POC glucose (test code = 74412-2) 262 mg/dL 65-99 H Vehicle Insurance Agent Name: Magnus Lindsay ID: [id number]: [facility] Notified plater apprentice Interpretation (test code = 11559-7) Abnormal [facility] w/ pulse [id number] 12:30:25* Test Item Value Reference Range Interpretation Comme nts Six Minute Walk Distance (m) (test code = 7614) 200.00 m 368.04-674.04 Six Minute Walk Distance Pre dicted (test code = 5645) 521 Six Minute Walk Distance % Predicted (test code = 5646) 38.4 % SP02 at Rest (test code = 7617) 89.00 % SP02 at after 1 minute (test code = 7630) 87.00 % SP02 at after 2 minutes (she t code = 7636) 86.00 % SP02 at after 3 minutes (she t code = 7642) 86.00 % SP02 at after 4 minutes (she t code = 7648) 91.00 % SP02 at after 5 minutes (she t code = 7654) 92.00 % SP02 at after 6 minutes (she t code = 7660) 91.00 % Heart Rate at Rest (test cod e = 7615) 89.00 BPM Heart Rate after 1 minute (t est code = 7629) 104.00 BPM Heart Rate after 2 minutes ( test code = 7635) 106.00 BPM Heart Rate after 3 minutes ( test code = 7641) 107.00 BPM Heart Rate after 4 minutes ( test code = 7647) 107.00 BPM Heart Rate after 5 minutes ( test code = 7653) 108.00 BPM Heart Rate after 6 minutes ( test code = 7659) 109.00 BPM Supplemental O2 During Rest (test code = 7624) 0.00 L/min Supplemental O2 after 1 deann te (test code = 7634) 2.00 L/min Supplemental O2 after 2 deann she (test code = 7640) 3.00 L/min Supplemental O2 after 3 deann she (test code = 7646) 4.00 L/min Supplemental O2 after 4 deann she (test code = 7652) 6.00 L/min Supplemental O2 after 5 deann she (test code = 7658) 6.00 L/min Supplemental O2 after 6 deann she (test code = 7664) 6.00 L/min BP Systolic at Rest (test co de = 7622) 148.00 mmHg BP Systolic after 6 minutes (test code = 7662) 130.00 mmHg BP Diastolic at Rest (test c ode = 7623) 67.00 mmHg BP Diastolic after 6 minutes (test code = 7663) 71.[address] Dyspnea Scale at Rest ( test code = 7619) 3.00 Lane Dyspnea Scale after 6 m inutes (test code = 7661) 5.00 Lowest SpO2 (test code = 7618) 85.00 % Highest Heart Rate (test cod e = 7616) 110.00 BPM Lap Count (test code = 7625) 5.00 Premature Stop (test code = 7621) 0.00 Number of Stops (test code = 7626) 0.00 Gait Speed (test code = 7627) 6.47 sec Lap Distance in meters (test code = 7620) 40.00 m Six Minute Walk Distance (ft ) (test code = 7665) 656.00 Feet Jeronimo Ngoix minute walk w/ pulse [id number] 12:30:25* Test Item Value Reference Range Interpretation Comme nts Six Minute Walk Distance (m) (test code = 7614) 200.00 m 368.04-674.04 Six Minute Walk Distance Pre dicted (test code = 5645) 521 Six Minute Walk Distance % Predicted (test code = 5646) 38.4 % SP02 at Rest (test code = 7617) 89.00 % SP02 at after 1 minute (test code = 7630) 87.00 % SP02 at after 2 minutes (she t code = 7636) 86.00 % SP02 at after 3 minutes (she t code = 7642) 86.00 % SP02 at after 4 minutes (she t code = 7648) 91.00 % SP02 at after 5 minutes (she t code = 7654) 92.00 % SP02 at after 6 minutes (she t code = 7660) 91.00 % Heart Rate at Rest (test cod e = 7615) 89.00 BPM Heart Rate after 1 minute (t est code = 7629) 104.00 BPM Heart Rate after 2 minutes ( test code = 7635) 106.00 BPM Heart Rate after 3 minutes ( test code = 7641) 107.00 BPM Heart Rate after 4 minutes ( test code = 7647) 107.00 BPM Heart Rate after 5 minutes ( test code = 7653) 108.00 BPM Heart Rate after 6 minutes ( test code = 7659) 109.00 BPM Supplemental O2 During Rest (test code = 7624) 0.00 L/min Supplemental O2 after 1 deann te (test code = 7634) 2.00 L/min Supplemental O2 after 2 deann she (test code = 7640) 3.00 L/min Supplemental O2 after 3 deann she (test code = 7646) 4.00 L/min Supplemental O2 after 4 deann she (test code = 7652) 6.00 L/min Supplemental O2 after 5 deann she (test code = 7658) 6.00 L/min Supplemental O2 after 6 deann she (test code = 7664) 6.00 L/min BP Systolic at Rest (test co de = 7622) 148.00 mmHg BP Systolic after 6 minutes (test code = 7662) 130.00 mmHg BP Diastolic at Rest (test c ode = 7623) 67.00 mmHg BP Diastolic after 6 minutes (test code = 7663) 71.[address] Dyspnea Scale at Rest ( test code = 7619) 3.00 Lane Dyspnea Scale after 6 m inutes (test code = 7661) 5.00 Lowest SpO2 (test code = 7618) 85.00 % Highest Heart Rate (test cod e = 7616) 110.00 BPM Lap Count (test code = 7625) 5.00 Premature Stop (test code = 7621) 0.00 Number of Stops (test code = 7626) 0.00 Gait Speed (test code = 7627) 6.47 sec Lap Distance in meters (test code = 7620) 40.00 m Six Minute Walk Distance (ft ) (test code = 7665) 656.00 Feet [facility] [id number] 15:28:44Nereyda Ding RN 01/25/2024 3:30 PMPICC insertion Date/Time: 01/25/2024 3:28 PM Performed by: Nereyda Ding, RNAuthorized by: Maksim Gonzalez MD Consent: Consent obtained: Written Consent given by: Patient Risks discussed: Arterial puncture, incorrect placement, nerve damage, infection, bleeding, superficial thrombus and deep vein thrombusUniversal protocol: Procedure explained and questions answered to patient or proxy's satisfaction: yes Relevant documents present and verified: yes Test results available and properly labeled: yes Imaging studies available: yes Required blood products, implants, devices, and special equipment available: yes Site/side marked: yes Immediately prior to procedure, a time out was called: yes Patient identity confirmed: Verbally with patient, arm band, provided demographic data and hospital-assigned identification numberPre-procedure details: Hand hygiene: Hand hygiene performed prior to insertion Sterile barrier technique: All elements of maximal sterile technique followed Skin preparation: ChloraPrep Skin preparation agent: Co mpletely dried prior to procedure Anesthesia (see MAR for exact dosages): Anesthesia method: Local infiltration Local anesthetic: Lidocaine 1% w/o epi Route administered: SubcutaneousPICC Line Placement Details: Patient position: Flat Vessel Size (mm): 5 Indication: Vesicants Location: Right brachial Device Type: Non-valved Catheter Lumens: Double lumen Catheter size: 4 FrPICC Characteristics: Catheter Brand: [employer] Provena External Catheter Length (cm): 0 Internal Catheter Length (cm): 39 Total Catheter Length (cm): 39 Catheter Lot Number: [id number] Catheter Expiration Date: 12/29/2024Procedure details: Landmarks identified: yes Ultrasound guidance: yes Sterile ultrasound techniques: Sterile gel and sterile probe covers were used Number of attempts: 1 Number of PICC kits used during procedure: 1 Extra guide wire required?: No Purpose of procedure: PICC Placement Successful PICC Placement: yes Patency/Placement: Flushes without difficulty, flushed with 10 mL normal saline, x-ray placementverified and positive blood return Dressing/Securement: Dressing dry and intact, antimicrobial dressing dry and intact, transparent semipermeable dressing and catheter securement device Blood Loss Amount: Less than 20 mL Number of guidewires used: 2 Number of guidewires removed: 2 No one witnessed the removal of the guidewire and a STAT CXR was performed immediately after central line placement to confirm placement.Post-procedure details: Post-procedure: Dressing applied Patient tolerance of procedure: Tolerated well, no immediate complicationsMem[facility] [id number] 15:28:44Nereyda Ding RN 01/25/2024 3:30 PMPICC insertion Date/Time: 01/25/2024 3:28 PM Performed by: Nereyda Ding RNAuthorized by: Maksim Gonzalez MD Consent: Consent obtained:Written Consent given by: Patient Risks discussed: Arterial puncture, incorrect placement, nerve damage, infection, bleeding, superficial thrombus and deep vein thrombusUniversal protocol: Procedure explained and questions answered to patient or proxy's satisfaction: yes Relevant documents present and verified: yes Test results available and properly labeled: yes Imaging studies available: yes Required blood products, implants, devices, and special equipment available: yes Site/side marked: yes Immediately prior to procedure, a time out was called: yes Patient identity confirmed: Verbally with patient, arm band, provided demographic data and hospital-assigned identification numberPre-procedure details: Hand hygiene: Hand hygiene performed prior to insertion Sterile barrier technique: Allelements of maximal sterile technique followed Skin preparation: ChloraPrep Skin preparation agent:Completely dried prior to procedure Anesthesia (see MAR for exact dosages): Anesthesia method: Local infiltration Local anesthetic: Lidocaine 1% w/o epi Route administered: SubcutaneousPICC Line Placement Details: Patient position: Flat Vessel Size (mm): 5 Indication: Vesicants Location: Right brach ial Device Type: Non-valved Catheter Lumens: Double lumen Catheter size: 4 FrPICC Characteristics: Catheter Brand: [employer] Provena External Catheter Length (cm): 0 Internal Catheter Length (cm): 39 Total Catheter Length (cm): 39 Catheter Lot Number: [id number] Catheter Expiration Date: 12/29/2024Procedure details: Landmarks identified: yes Ultrasound guidance: yes Sterile ultrasound techniques: Sterilegel and sterile probe covers were used Number of attempts: 1 Number of PICC kits used during procedure: 1 Extra guide wire required?: No Purpose of procedure: PICC Placement Successful PICC Placement: yes Patency/Placement: Flushes without difficulty, flushed with 10 mL normal saline, x-ray placement verified and positive blood return Dressing/Securement: Dressing dry and intact, antimicrobial dressing dry and intact, transparent semipermeable dressing and catheter securement device Blood Loss Amount: Less than 20 mL Number of guidewires used: 2 Number of guidewires removed: 2 No one witnessed the removal of the guidewire and a STAT CXR was performed immediately after central line placementto confirm placement.Post-procedure details: Post- procedure: Dressing applied Patient tolerance of procedure: Tolerated well, no immediate complicationsHouholy [facility] hospital MethodistUrine [id number] 15:31:00* Test Item Value Reference Range Interpretation Comme nts Urine culture (test code = 4044467) SEE COMMENT Bacteriuria scre en negative. [facility] [id number] 15:31:00* Test Item Value Reference Range Interpretation Comme nts Urine culture (test code = 4549325) SEE COMMENT Bacteriuria scre en negative. [facility] ED Preliminary Interpretation - Not an [id number] 13:17:34* Test Item Value Reference Range Interpretation Comme nts DRISS (test code = DRISS) Rajat Fuentes DO 01/25/2024 9:59 [facility] [place] Interpretation - Not an Order Date/Time: 01/24/2024 1:17 PM Performed by: Rajat Fuentes DOAuthorized by: Rajat Fuentes DO Previous ECG: Previous ECG: UnavailableInterpretat ion: Interpretation: abnormal Rate: ECG rate: 94 ECG rate assessment: normal Rhythm: Rhythm: sinus rhythm QRS: QRS axis: Normal QRS intervals: Normal QRS conduction: RBBB ST segments: ST segments: NormalT waves: T waves: normal Lab Interpretation (test code = 49963-8) Abnormal [facility] ED Preliminary Interpretation - Not an [id number] 13:17:34* Test Item Value Reference Range Interpretation Comme nts DRISS (test code = DRISS) Rajat Fuentes DO 01/25/2024 9:59 [facility] Preliminary Interpretation - Not an Order Date/Time: 01/24/2024 1:17 PM Performed by: Rajat Fuenets, Authorized by: Rajat Fuentes DO Previous ECG: Previous ECG: UnavailableInterpretat ion: Interpretation: abnormal Rate: ECG rate: 94 ECG rate assessment: normal Rhythm: Rhythm: sinus rhythm QRS: QRS axis: Normal QRS intervals: Normal QRS conduction: RBBB ST segments: ST segments: NormalT waves: T waves: normal Lab Interpretation (test code = 82738-0) Abnormal [facility] [id number] 13:17:30Rajat Fuentes DO 01/25/2024 9:59 PMCritical care provider statement (critical care time was ex clusive of separately billable procedures and treating other patients):Critical Care Performed by: Rajat Fuentes DOAuthorized by: Rajat Fuentes DO Critical care provider statement: Critical care time (minutes): 33 Critical care was necessary to treat or prevent imminent or life-threatening deterioration of the following conditions: Respiratory failure Critical care was time spent per sonally by me on the following activities: Development of treatment plan with patient or surrogate,discussions with consultants, evaluation of patient's response to treatment, examination of patient, ordering and performing treatments and interventions, ordering and review of radiographic studies, ordering and review of laboratory studies, pulse oximetry, re-evaluation of patient's condition andreview of old chartsComments: The patient is critically ill due to but not limited to: ongoing respiratory failure, high risk for respiratory failure, hemodynamic or metabolic deterioration, altered mental status, and acute organ failure. The patient is requiring frequent assessment, treatment, life-saving devices, and prevention and management of life threatening conditions.[facility] [id number] 13:17:30Rajat Fuentes DO 01/25/2024 9:59 PMCritical care provider statement (critical care time was exclusive of separately billable procedures and treating other patients):Critical Care Performed by: Rajat Fuentes DOAuthorized by: Rajat Fuentes DO Critical care provider statement: Critical care time (minutes): 33 Critical care was necessary to treat or prevent imminent or life-threatening deterioration of the following conditions: Respiratory failure Critical care was time spent personally by me on the following activities: Development of treatment plan with patient or surrogate,discussions with consultants, evaluation of patient's response to treatment, examination of patient, ordering and performing treatments and interventions, ordering and review of radiographic studies,ordering and review of laboratory studies, pulse oximetry, re-evaluation of patient's condition andreview of old chartsComments: The patient is critically ill due to but not limited to: ongoing respiratory failure, high risk for respiratory failure, hemodynamic or metabolic deterioration, altered mental status, and acute organ failure. The patient is requiring frequent assessment, treatment, life-saving devices, and prevention and management of life threatening conditions.[place] [facility] (non- gynecological) [id number] 16:48:26* Test Item Value Reference Range Interpretation Comme nts Case number (test code = 4606174) [id number] Cytology (non-gynecological) report (test code = 1178) See link below for PDF Lab Report Result status (test code = 9868592) Final Report for [id number] [place] [facility] [id number] 16:48:26* Test Item Value Reference Range Interpretation Comme nts Case number (test code = 8093090) [id number] Cytology (non-gynecological) report (test code = 1178) See link below for PDF Lab Report Result status (test code = 1403271) Final Report for [id number] [place] [facility] [id number] 15:24:47* Test Item Value Reference Range Interpretation Comme nts Case number (test code = 7693833) [id number] Surgical pathology report (test code = 2255) See link below for PDF Lab Report Result status (test code = 7024071) Final Report for [id number] [place] [facility] [id number] 15:24:47* Test Item Value Reference Range Interpretation Comme nts Case number (test code = 1356972) [id number] Surgical pathology report (test code = 2255) See link below for PDF Lab Report Result status (test code = 1935475) Final Report for [id number] [place] [facility] [id number] 10:19:00* Test Item Value Reference Range Interpretation Comme nts Sputum culture isolate (test code = 2234) Normal oral nasim isolated. Specimen InformationSpecimen Source: SputumSpecimen Site: Expectorated [place] MethodistSputum [id number] 10:19:00* Test Item Value Reference Range Interpretation Comme nts Sputum culture isolate (test code = 2234) Normal oral nasim isolated. Specimen InformationSpecimen Source: SputumSpecimen Site: Expectorated [place] [facility] [place] > I [id number] 17:21:17Fluoroscopic imaging requested. Radiologist was not present during the examination. Please see patie nt's chart for radiation dose and fluoro time. Separate report will be issued by the physician performing the procedure.Jeronimo Slater [place] > I [id number] 17:21:17Fluoroscopic imaging requested. Radiologist was not present during the examination. Please see patient's chart for radiation dose and fluoro time. Separate report will be issued by the physician performing the procedure.Decker [id number] 16:05:00Joel Hammer MD 01/04/2024 4:09 PMAirway Date/Time: 01/04/2024 4:05 PM Location: OR Performed by: anesthesiologistAuthorized by: Joel Hammer MDPreoxygenated with 100% O2: Yes C-spine Precautions Maintained Throughout: Yes Mask Ventilation: Easy maskFinal Airway Type: Endotracheal airwayFinal Endotracheal Airway: ETTCuffed: Yes Technique Used: Direct laryngoscopyInsertion Site: OralBlade Type: MillerLaryngoscope Blade/Videolaryngoscope Blade Size: 2ETT Size (mm): 8.0Cuff at minimum occlusion pressure: Yes Measured from: LipsETT to Lips (cm): 22Placement Verified by: CO2 detection, direct visualization and equal breath sounds Laryngoscopic view: Grade I - full view of glottisRapid Sequence Induction (RSI): No Modified RSI: No Number of Attempts at Approach: 1Medication s Administeredpropofol (DIPRIVAN) BOLUS - intravenous 200 mg - 01/04/2024 4:05:00 PMrocuronium (ZEMURON) - intravenous 50 mg - 01/04/2024 4:05:00 PMJeronimo [id number] 16:05:00Joel Hammer MD 01/04/2024 4:09 PMAirway Date/Time: 01/04/2024 4:05 PM Location: OR Performed by: anesthesiologistAuthorized by: Joel Hammer MDPreoxygenated with 100% O2: Yes C-spine Precautions Maintained Throughout: Yes Mask Ventilation: Easy maskFinal Airway Type: Endotracheal airwayFinal Endotracheal Airway: ETTCuffed: Yes Technique Used: Direct laryngoscopyInsertion Site: OralBlade Type: MillerLaryngoscope Blade/Videolaryngoscope Blade Size: 2ETT Size (mm): 8.0Cuff at minimum occlusion pressure: Yes Measured from: LipsETT to Lips (cm): 22Placement Verified by: CO2 detection, direct visualization and equal breath sounds Laryngoscopic view: Grade I - full view of glottisRapid Sequence Induction (RSI): No Modified RSI: No Number of Attempts at Approach: 1Medication s Administeredpropofol (DIPRIVAN) BOLUS - intravenous 200 mg - 01/04/2024 4:05:00 PMrocuronium (ZEMURON) - intravenous 50 mg - 01/04/2024 4:05:00 [facility]MLamb [facility] CenterGram [id number] 12:02:00* Test Item Value Reference Range Interpretation Comme nts Gram stain isolate (test code = 1469) Occasional Gram positive rods Specimen InformationSpecimen Source: SputumSpecimen Site: [facility] [id number] 12:02:00* Test Item Value Reference Range Interpretation Comme nts Gram stain isolate (test code = 1469) Occasional Gram positive rods Specimen InformationSpecimen Source: SputumSpecimen Site: Expectorated [facility]inal[facility], automated with [id number] 09:07:00* Test Item Value Reference Range Interpretation Comme nts Color, UA (test code = 5778-6) Straw Appearance, UA (test code = 5767-9) Clear Specific gravity, UA (test c ode = 5811-5) 1.018 1.001-1.035 pH, UA (test code = 5803-2) 5.5 5.0-8.5 Protein, UA (test code = 48741-4) Negative Negative Glucose, UA (test code = 50427-5) Negative Negative Ketones, UA (test code = 2514-8) Negative Negative Bilirubin, UA (test code = 5770-3) Negative Negative Blood, UA (test code = 5794-3) Negative Negative Nitrite, UA (test code = 5802-4) Negative Negative Urobilinogen, UA (test code = 26323-2) <2.0 <=2.0 Leukocyte esterase, UA (test code = 5799-2) Negative Negative WBC, UA (test code = 5821-4) 0-1 RBC, UA (test code = 00316-8) <1 0-5 Bacteria, UA (test code = 62457-7) None seen None seen Yeast, UA (test code = 10574-4) None seen None seen Yeast with pseudohyphae, UA (test code = 63115-2) None seen None seen [facility] MethodistUrinalysis, automated with [id number] 09:07:00* Test Item Value Reference Range Interpretation Comme nts Color, UA (test code = 5778-6) Straw Appearance, UA (test code = 5767-9) Clear Specific gravity, UA (test c ode = 5811-5) 1.018 1.001-1.035 pH, UA (test code = 5803-2) 5.5 5.0-8.5 Protein, UA (test code = 14115-9) Negative Negative Glucose, UA (test code = 75301-2) Negative Negative Ketones, UA (test code = 2514-8) Negative Negative Bilirubin, UA (test code = 5770-3) Negative Negative Blood, UA (test code = 5794-3) Negative Negative Nitrite, UA (test code = 5802-4) Negative Negative Urobilinogen, UA (test code = 88484-1) <2.0 <=2.0 Leukocyte esterase, UA (test code = 5799-2) Negative Negative WBC, UA (test code = 5821-4) 0-1 RBC, UA (test code = 49729-1) <1 0-5 Bacteria, UA (test code = 25699-7) None seen None seen Yeast, UA (test code = 46470-5) None seen None seen Yeast with pseudohyphae, UA (test code = 99465-6) None seen None seen [facility]
[2024-02-22 23:58] LABS: Band Neutrophils 29 % (0-1); Blood Morphology Comment NOTED (NOT SEEN); Differential Total Cells Count 100; Lymphocytes 23 % (15-42); Metamyelocytes 3 % (0-0); Monocytes 10 % (0-10); Platelet Estimate ADEQ; Reactive Lymphocytes 18 %; Segmented Neutrophils 17 % (40-80)
[2024-02-22 23:59] LABS: Anisocytosis 1+; Microcytosis 1+
[2024-02-23] MEDS ORDERED: ALBUTEROL 2.5 MG/3 ML NEB SOL ONE (00:07)
[2024-02-23] MEDS ORDERED: VANCOMYCIN 1 GM/VIAL ONE (00:07)
[2024-02-23] MEDS ORDERED: CEFEPIME 2 GM VIAL ONE (00:07)
[2024-02-23] MEDS ORDERED: NA CHLORIDE 0.9% 500 ML ONE ×2 (00:07→00:52)
[2024-02-23] MEDS ORDERED: NA CHLORIDE 0.9% 100 ML ONE (00:08)
[2024-02-23] MEDS ORDERED: NA CHLORIDE 0.9% 1,000 ML ONE (00:08)
[2024-02-23] MEDS ORDERED: ALBUMIN HUMAN 25% 200 ML IV ONE (00:36)
--- NOTE | 2024-02-23 02:39 | ER ---
Nurse's Notes [facility] Name: Farhat Huddleston Jr Age: 73 yrs Sex: Male : 1950 Arrival Date: 02/22/2024 Time: 22:03 Bed 4 Private MD: Diagnosis: Antineoplastic chemotherapy induced pancytopenia;Symptomatic anemia, chemotherapy related pancytopenia, acute left lower lung pneumonia, lysed weakness, hyponatremia, paraneoplastic syndrome, Stage IIIc lung cancer Presentation: 02/21 22:17 Chief complaint: EMS states: Pt was walking from bathroom became really weak and fell vc1 to knees unable to get up. 22:17 Coronavirus screen: Client denies travel out of the [place] in the last 14 days. At this vc1 time, the client does not indicate any symptoms associated with coronavirus-19. Ebola Screen: Patient negative for fever greater than or equal to 101.5 degrees Fahrenheit, and additional compatible Ebola Virus Disease symptoms Patient denies exposure to infectious person. Patient denies travel to an Ebola-affected area in the 21 days before illness onset. No symptoms or risks identified at this time. Initial Sepsis Screen: Does the patient meet any 2 criteria? No. Patient's initial sepsis screen is negative. Does the patient have a suspected source of infection? No. Patient's initial sepsis screen is negative. Risk Assessment: Do you want to hurt yourself or someone else? Patient reports no desire to harm self or others. Onset of symptoms was February 22, 2024. Care prior to arrival: None. Activity prior to arrival: None. Mechanism of Injury: No Mechanism of Injury. Transition of care: patient was not received from another setting of care. 22:17 Method Of Arrival: EMS: [facility] vc1 22:17 Acuity: MATTHIAS 2 vc1 22:17 Care prior to arrival: IV initiated. 20 GA, in the left wrist, Oxygen administered. via vc1 nasal cannula. Triage Assessment: 22:17 General: Appears distressed, uncomfortable, well groomed, well developed, Behavior is vc1 cooperative, anxious. Pain: Denies pain. EENT: No deficits noted. No signs and/or symptoms were reported regarding the EENT system. Neuro: Level of Consciousness is awake, obeys commands, Oriented to person, place, time, situation, Appropriate for age. Cardiovascular: Capillary refill < 3 seconds Patient's skin is warm and dry. Respiratory: Reports shortness of breath at rest Airway is patent Respiratory effort is even, labored, Respiratory pattern is symmetrical, tachypnea Breath sounds are diminished Onset: The symptoms/episode began/occurred suddenly, the patient has severe shortness of breath. GI: No deficits noted. No signs and/or symptoms were reported involving the gastrointestinal system. : No deficits noted. No signs and/or symptoms were reported regarding the genitourinary system. Derm: Skin is intact, is healthy with good turgor, Skin is dry, Skin is normal. Musculoskeletal: No deficits noted. No signs and/or symptoms reported regarding the musculoskeletal system. Historical: - Allergies: 22:17 No Known Allergies; vc1 - PMHx: 22:17 Aortic stenosis; Atrial fibrillation; Diabetes mellitus; lung cancer, fibrosis of the vc1 lungs; - PSHx: 22:17 None; vc1 - Immunization history:: Adult Immunizations up to date. - Infectious Disease History:: Denies. - Social history:: Smoking status: Patient denies any tobacco usage or history of. - Family history:: not pertinent. Screenin:17 Abuse screen: Denies threats or abuse. Nutritional screening: No deficits noted. vc1 Tuberculosis screening: No symptoms or risk factors identified. 22:17 [facility] ED Fall Risk Assessment (Adult) History of falling in the last 3 months, vc1 including since admission Yes- physiologic fall (2 pts) Confusion or Disorientation No (0 pts) Intoxicated or Sedated No (0 pts) Impaired Gait No (0 pts) Mobility Assist Device Used No (0 pt) Altered Elimination No (0 pt) Score/Fall Risk Level 0 - 2 = Low Risk Oriented to surroundings, Maintained a safe environment, Educated pt \T\ family on fall prevention, incl call for assistance when getting out of bed. Assessment: 22:30 Respiratory: Patient placed on BiPAP: Inspiratory Pressure: 12 Expiratory (EPAP) vc1 Pressure: 6 FiO2%: 60 Respiratory Rate: 12. 22:30 Cardiovascular: Rhythm is sinus rhythm. vc1 23:29 Reassessment: Patient and/or family updated on plan of care and expected duration. Pain vc1 level reassessed. Patient states feeling better. Patient states symptoms have improved. 02/22 01:34 Reassessment: Patient appears in no apparent distress at this time. No changes from vc1 previously documented assessment. Patient and/or family updated on plan of care and expected duration. Pain level reassessed. Vital Signs: 02/21 22:17 BP 129 / 49; Pulse 103; Resp 43; Temp 97.7; Pulse Ox 93% on 6 lpm NC; Weight 96.62 kg; vc1 Height 5 ft. 10 in. ; Pain 0/10; 23:00 BP 114 / 53; Pulse 95; Resp 32; Pulse Ox 100% ; vc1 02/22 00:00 BP 126 / 71; Pulse 90; Resp 34; Pulse Ox 100% ; vc1 01:00 BP 122 / 61; Pulse 88; Resp 31; Pulse Ox 99% on BiPAP; FiO2 60 %; vc1 01:33 vc1 03:00 BP 120 / 71; Pulse 97; Resp 29; Pulse Ox 99% on BiPAP; FiO2 60 %; vc1 04:00 BP 120 / 63; Pulse 94; Resp 31; Pulse Ox 99% ; vc1 05:00 BP 120 / 62; Pulse 101; Resp 30; Pulse Ox 98% on BiPAP; vc1 02/21 22:17 Body Mass Index 30.56 (96.62 kg, 177.8 cm) vc1 02/21 22:17 Pain Scale: Adult vc1 01:33 see transfusion record vc1 Morris Coma Score: 02:23 Eye Response: spontaneous(4). Motor Response: obeys commands(6). Verbal Response: sp4 oriented(5). Total: 15. ED Course: 02/21 22:17 Patient arrived in ED. ha1 22:17 Arm band placed on left wrist. vc1 22:17 Patient has correct armband on for positive identification. Bed in low position. Call vc1 light in reach. Side rails up X2. block inspector on. Pulse ox on. NIBP on. 22:18 William Villafana MD is Attending Physician. sp4 22:20 Initial lab(s) drawn, by ED staff, sent to lab. First set of blood cultures drawn vc1 Second set of blood cultures drawn by mi. Inserted saline lock: 20 gauge in right hand, using aseptic technique. Blood collected. Flushed with 10 mL NS. 22:20 Maintain EMS IV. Dressing intact. Good blood return noted. Gauge \T\ site: 20 g Left vc1 wrist. Flushed with 10 mL NS. 22:52 Chest Single View XRAY In Process Unspecified. EDMS 23:00 Provided Education on: blood transfusions. vc1 23:15 EKG done, by ED staff, reviewed by William Villafana MD. kmf 23:15 Door closed. Noise minimized. Lights dimmed. Warm blanket given. kmf 23:23 Triage completed. vc1 23:31 Phylicia Mena, RN is Primary Nurse. vc1 02/22 00:49 CT Chest Abdomen Pelvis W/O Contrast In Process Unspecified. EDMS 00:55 Inserted saline lock: 18 gauge in left wrist, using aseptic technique. Flushed with 10 kmf mL NS. 03:01 0209 called [facility] to start transfer talked to Terra Guidry5 Dr. Nette Hanley sp accepted pt. 03:20 report number [phone] [facility] Main bed 1014. sp 04:06 called [facility] for transport to [facility] talked to Farhan. sarah 05:40 No provider procedures requiring assistance completed. Patient transferred, IV remains vc1 in place. Administered Medications: 00:24 Drug: Cefepime IVPB 2 grams IVPB at 200 ml/hr once over 30 mins; (mix in NS 100 mL) vc1 Route: IVPB; Rate: 200 ml/hr; Infused Over: 30 mins; Site: right wrist; 00:54 Follow up: IV Status: Completed infusion; IV Intake: 100ml vc1 00:25 Drug: Albuterol Inhalation 2.5 mg Inhalation once Route: Inhalation; vc1 00:25 Drug: Albuterol Inhalation 2.5 mg Inhalation once Route: Inhalation; vc1 00:25 Drug: NS 0.9% IV 1000 ml IV at 125 ml/hr continuous Route: IV; Rate: 125 ml/hr; Site: vc1 right wrist; 05:23 Follow up: IV Status: Infusion continued upon transfer; IV Intake: 500ml vc1 02:47 Drug: Albumin IVPB 25 grams 100 ml IVPB once; (Note: Albumin 25% concentration) Volume: vc1 100 ml; Route: IVPB; Site: left forearm; 04:27 Follow up: IV Status: Completed infusion; IV Intake: 100ml vc1 02:48 Drug: vancoMYCIN IVPB 2 grams IVPB at calculated rate once Route: IVPB; Rate: vc1 calculated rate; Site: right wrist; 05:23 Follow up: IV Status: Completed infusion; IV Intake: 500ml vc1 02:50 Drug: Calcium Gluconate IVPB 2 grams IVPB once over 60 mins; (mix in NS 100 mL) Route: vc1 IVPB; Infused Over: 60 mins; Site: left forearm; 03:50 Follow up: IV Status: Completed infusion; IV Intake: 100ml vc1 03:39 Drug: Albumin IVPB 25 grams 100 ml IVPB once; (Note: Albumin 25% concentration) Volume: vc1 100 ml; Route: IVPB; Site: right antecubital; 04:39 Follow up: IV Status: Completed infusion; IV Intake: 100ml vc1 Medication: 02/21 23:26 VIS not applicable for this client. vc1 Intake: 02/22 00:54 IV: 100ml; Total: 100ml. vc1 03:50 IV: 100ml; Total: 200ml. vc1 04:27 IV: 100ml; Total: 300ml. vc1 04:39 IV: 100ml; Total: 400ml. vc1 05:23 IV: 500ml; Total: 900ml. vc1 05:23 IV: 500ml; Total: 1400ml. vc1 Outcome: 02:38 ER care complete, transfer ordered by . sp4 05:41 Transferred by ground EMS to [facility], Transfer form completed. X-rays vc1 sent w/ patient. 05:41 Condition: stable 06:24 Patient left the ED. vc1 Signatures: Dispatcher [employer] EDMS Quynh Ospina Vanessa RN RN vc1 Estefany Hartley RN RN haWilliam Small MD MD sp4 Nereida [place] [facility]: (The following items were deleted from the chart) 05:25 02/21 23:14 Inserted saline lock: 20 gauge in right hand, using aseptic technique. vc1 Blood collected. Flushed with 10 mL NS mirta 02/22 05:25 02/21 23:14 Initial lab(s) drawn, by ED staff, sent to lab. First set of blood cultures vc1 drawn Second set of blood cultures drawn by me, kmf
--- NOTE | 2024-02-23 02:39 | EDPHYS ---
Physician Documentation [facility] Name: Farhat Huddleston Jr Age: 73 yrs Sex: Male : 1950 Arrival Date: 02/22/2024 Time: 22:03 Bed 4 Private MD: ED Physician William Villafana HPI: 02/21 22:18 This 73 yrs old Male presents to ER via Unassigned with complaints of dyspnea sp4 , weakness . 02/22 02:23 73-year-old male presents with EMS for acute onset of generalized weakness, with sp4 associated with bilateral lower extremity edema shortness of breath and acute respiratory distress. EMS reports patient is on 6 L nasal cannula oxygen at home. Patient has history of metastatic lung cancer stage IIIc, he has completed his last chemotherapy 1 week ago, and has thus far 2 sessions of chemotherapy. Hemotherapy administered with carboplatin and Taxol. Patient's oncology team is at [facility]. Kenneth Barksdale at [phone].. Patient today went to the bathroom became weak and collapsed onto the floor after he used the bathroom. Patient presents with obvious respiratory distress. Patient's medications include amiodarone 200 mg daily, metformin 500 mg twice a day, metoprolol 25 mg daily, Eliquis 2.5 mg twice daily, multivitamin 1 mg daily, vitamin D daily, Crestor 20 mg daily, Mucinex as needed and benzonatate as needed . Historical: - Allergies: 02/21 22:17 No Known Allergies; vc1 - PMHx: 22:17 Aortic stenosis; Atrial fibrillation; Diabetes mellitus; lung cancer, fibrosis of the vc1 lungs; - PSHx: 22:17 None; vc1 - Immunization history:: Adult Immunizations up to date. - Infectious Disease History:: Denies. - Social history:: Smoking status: Patient denies any tobacco usage or history of. - Family history:: not pertinent. ROS: 02/22 02:23 Constitutional: Negative for fever, chills, and weight loss, Positive for generalized sp4 weakness, positive for shortness of breath, positive for respiratory distress, positive for bilateral lower extremity edema. All other systems are negative, Exam: 02:23 Constitutional: Physically deconditioned male, moderate respiratory distress, on sp4 high flow oxygen oxygenating 90%, moderate tachypnea and dyspnea retractions, bilateral lower extremity edema, generalized weakness nonambulatory on arrival. Ill-appearing and toxic appearing. Blood pressure stable Head/Face: Normocephalic, atraumatic. Eyes: Pupils equal round and reactive to light, extra-ocular motions intact. Lids and lashes normal. Conjunctiva and sclera are not injected. Cornea within normal limits. Periorbital areas with no swelling, redness, or edema. ENT: Nares patent. No nasal discharge, no septal abnormalities noted. Tympanic membranes are normal and external auditory canals are clear. Oropharynx with no redness, swelling, or masses, exudates, or evidence of obstruction, uvula midline. Mucous membranes moist. Neck: Trachea midline, no thyromegaly or masses palpated, and no cervical lymphadenopathy. Supple, full range of motion without nuchal rigidity, or vertebral point tenderness. Chest/axilla: Normal chest wall appearance and motion. Nontender with no deformity. No lesions are appreciated. Cardiovascular: Regular rate and rhythm with a normal S1 and S2. No gallops, murmurs, or rubs. Normal PMI, no JVD. No pulse deficits. Respiratory: Lungs have equal breath sounds bilaterally, Positive bilateral crackles to auscultation diminished lung sounds at the bases. Dyspnea tachypnea abdominal retractions on arrival. Is oxygen dependent Abdomen/GI: Soft, with normal bowel sounds. No distension or tympany. No guarding or rebound. No evidence of tenderness throughout. Back: No spinal tenderness. No costovertebral tenderness. Skin: Warm, dry with normal turgor. Normal color with no rashes, no lesions, and no evidence of cellulitis. MS/ Extremity: Pulses equal, no cyanosis. Neurovascular intact. Full, normal range of motion. Neuro: Awake and alert, GCS 15, oriented to person, place, time, and situation. Cranial nerves II-XII grossly intact. Time limited secondary to generalized weakness, patient has GCS of 15, moves all extremities no signs of lateralizing deficits on arrival Psych: Awake, alert, with orientation to person, place and time. Behavior, mood, and affect are within normal limits 02:23 ECG was reviewed by the Attending Physician. EG at 2220 sinus rhythm rate 100 right bundle branch block otherwise normal Vital Signs: 02/21 22:17 BP 129 / 49; Pulse 103; Resp 43; Temp 97.7; Pulse Ox 93% on 6 lpm NC; Weight 96.62 kg; vc1 Height 5 ft. 10 in. ; Pain 0/10; 23:00 BP 114 / 53; Pulse 95; Resp 32; Pulse Ox 100% ; vc1 02/22 00:00 BP 126 / 71; Pulse 90; Resp 34; Pulse Ox 100% ; vc1 01:00 BP 122 / 61; Pulse 88; Resp 31; Pulse Ox 99% on BiPAP; FiO2 60 %; vc1 01:33 vc1 03:00 BP 120 / 71; Pulse 97; Resp 29; Pulse Ox 99% on BiPAP; FiO2 60 %; vc1 04:00 BP 120 / 63; Pulse 94; Resp 31; Pulse Ox 99% ; vc1 05:00 BP 120 / 62; Pulse 101; Resp 30; Pulse Ox 98% on BiPAP; vc1 02/21 22:17 Body Mass Index 30.56 (96.62 kg, 177.8 cm) vc1 02/21 22:17 Pain Scale: Adult vc1 01:33 see transfusion record vc1 Rover Coma Score: 02:23 Eye Response: spontaneous(4). Motor Response: obeys commands(6). Verbal Response: sp4 oriented(5). Total: 15. MDM: 02/21 22:25 Medical Screening Exam initiated sp4 23:35 ED course: TIME OF STUDY: 02/22/2024 10:25 PM CDT REASON FOR EXAM: CHEST PAIN sp4 COMPARISON: None. FINDINGS: AP view of the chest was obtained, chest 1 view. Lungs: The lungs are adequately inflated. Bilateral interstitial and patchy airspace opacities are noted, greater on the right. Confluent airspace opacities are noted in the lung bases. A right IJ Port-A-Cath is noted. Pleura: No pneumothorax. Tiny bilateral pleural effusions are noted. Heart and Mediastinum: Cardiac silhouette is borderline enlarged. The aorta is atherosclerotic and tortuous. Bones: No acute bony abnormality.. IMPRESSION: 1. Bilateral interstitial and patchy airspace opacities with confluent airspace opacities in the lung bases. These findings are consistent with multilobar pneumonia. . 02/22 01:54 ED course: Clinical Indication: Bed Name: 4; pneumonia Comparison: December 11, 2023 sp4 TECHNIQUE: Sequential trans-axial images were obtained through the chest, abdomen and pelvis without iodinated contrast or oral contrast. Coronal and sagittal reconstructions were obtained and provided as separate series. All CT scans at this location are performed using dose optimization techniques as appropriate to perform the study. Radiation dose reduction technique was utilized including one or more of the following: Automated exposure control, adjustment of the mA and/or kV according to patient size and use of iterative reconstruction technique. CT Radiation Dose DLP 1093.8 mGy-cm FINDINGS: CT CHEST: LUNG PARENCHYMA AND PLEURA: Diffuse airspace opacities are noted along the bronchi. Clinical correlation for aspiration pneumonia may be helpful. Fibrotic changes are noted in the lungs with subpleural fibrosis/scarring. Mild bronchiectasis is noted in the upper and lower lobes. There are no pleural effusions. There is no pneumothorax. Rounded soft tissue masslike density is noted within the lingula. This can be seen on image 35 of series 201. This measures approximately 6.4 x 4.8 cm in cross-section. This was much smaller and more consolidative-like on prior study dated December 11, 2023. This may represent consolidative pneumonia and follow-up is recommended after resolution of acute symptoms. AIRWAY: The central airway is patent MEDIASTINUM: Enlarged preaortic lymph nodes are noted. The largest can be seen on image 21 of series 201 and measures 2.9 x 2.4 cm in cross-section. Small paratracheal lymph nodes are noted. HEART: The heart is normal in size.. There is trace pericardial effusion. VASCULAR STRUCTURES: The pulmonary arteries and great vessels are normal in caliber. The thoracic aorta is normal in caliber. The superior vena cava is unremarkable. OSSEOUS STRUCTURES: There are no acute osseous abnormalities seen. ESOPHAGUS: No gross abnormalities. CTABDOMEN/PELVIS: NON-CONTRAST ENHANCED SOLID ORGANS: LIVER: Unremarkable. GALLBLADDER: The gallbladder is contracted INTRAHEPATIC BILE DUCTAND EXTRAHEPATIC BILE DUCT: Unremarkable. PANCREAS: Unremarkable. SPLEEN: Unremarkable. ADRENALS: Unremarkable. KIDNEYS: The renal contours are normal. There is no hydronephrosis. No calcified renal stones are noted. No surrounding fat stranding is noted. STOMACH: Evaluation of the stomach and bowel is limited due to lack of oral contrast. No gross abnormalities of the stomach are noted. BOWEL: The non-contrast opacified small bowel loops in the abdomen and pelvis appear unremarkable. The noncontrast opacified colonic loops in the abdomen and pelvis appear unremarkable. APPENDIX: The appendix is normal in caliber without surrounding inflammatory changes. PERITONEUM AND RETROPERITONEUM: No ascites or free air. No loculated fluid collection noted. The abdominal aorta is normal in caliber. Moderate atherosclerotic disease is noted in the aortoiliac vessels and their major branches. LYMPH NODES: Unremarkable. PELVIS: No pelvic mass or adenopathy. . The prostate is unremarkable. BLADDER: Unremarkable. OSSEOUS STRUCTURES: No acute abnormality seen. SOFT TISSUES: Unremarkable. IMPRESSION: 1. Findings consistent with pulmonary fibrosis and mild bronchiectasis. 2. Dense consolidation within the lingula and along the bronchi. Clinical correlation for bronchopneumonia or aspiration pneumonia may be helpful. 3. No acute abnormality of the abdomen or pelvis is noted. Electronically signed by: Aleksandar Ta MD 02/23/2024 01:15 AM. 02:38 Differential diagnosis: Anemia Anxiety Reaction asthma, Bronchitis CHF exacerbation, sp4 Chronic Obstructive Pulmonary Disease Myocardial Infarction pneumonia, Pneumothorax Psychogenic reactive airway disease, Sepsis Unstable Angina. Data reviewed: vital signs, nurses notes, EMS record, old medical records, lab test result(s), radiologic studies, CT scan, plain films. 02:39 ED course: CT chest - IMPRESSION: 1. Findings consistent with pulmonary fibrosis and sp4 mild bronchiectasis. 2. Dense consolidation within the lingula and along the bronchi. Clinical correlation for bronchopneumonia or aspiration pneumonia may be helpful. 3. No acute abnormality of the abdomen or pelvis is noted. Electronically signed by: Aleksandar Ta MD 02/23/2024 01:15 AM. ED course: TIME OF STUDY: 02/22/2024 10:25 PM CDT REASON FOR EXAM: CHEST PAIN COMPARISON: None. FINDINGS: AP view of the chest was obtained, chest 1 view. Lungs: The lungs are adequately inflated. Bilateral interstitial and patchy airspace opacities are noted, greater on the right. Confluent airspace opacities are noted in the lung bases. A right IJ Port-A-Cath is noted. Pleura: No pneumothorax. Tiny bilateral pleural effusions are noted. Heart and Mediastinum: Cardiac silhouette is borderline enlarged. The aorta is atherosclerotic and tortuous. Bones: No acute bony abnormality.. IMPRESSION: 1. Bilateral interstitial and patchy airspace opacities with confluent airspace opacities in the lung bases. These findings are consistent with multilobar pneumonia.. 02/21 22:22 Order name: Blood Culture Adult (2) sp4 02/21 22:22 Order name: CBC with Diff; Complete Time: 00:04 sp4 02/21 22:22 Order name: CMP; Complete Time: 23: sp4 02/21 22:22 Order name: Lactate w/ 2H reflex if indic.; Complete Time: 23:25 sp4 02/21 22:22 Order name: Protime (+inr); Complete Time: 23:25 sp4 02/21 22:22 Order name: Ptt, Activated; Complete Time: 23:25 sp4 02/21 22:22 Order name: ABG; Complete Time: 23:25 sp4 02/21 23:05 Order name: Manual Differential; Complete Time: 00:04 EDMS 02/21 23:34 Order name: Type And Screen sp4 02/22 02:44 Order name: Packed RBC Leukored EDGA 02/22 03:26 Order name: ABO/RH no charge; Complete Time: 03:37 EDMS 02/21 22:21 Order name: BIPAP 4 02/21 22:25 Order name: Chest Single View XRAY sp4 02/22 00:04 Order name: CT Chest Abdomen Pelvis W/O Contrast sp4 02/21 22:22 Order name: EKG; Complete Time: 22: sp4 02/21 22:22 Order name: Accucheck; Complete Time: : sp4 02/21 22:22 Order name: Cardiac monitoring; Complete Time: 23: sp4 02/21 22:22 Order name: EKG - Nurse/Tech; Complete Time: : sp4 02/21 22:22 Order name: IV Saline Lock - Large Bore; Complete Time: 00:25 sp4 02/21 22:22 Order name: Labs collected and sent; Complete Time: 00:25 sp4 02/21 22:22 Order name: O2 Per Protocol; Complete Time: : sp4 02/21 22:22 Order name: O2 Sat Monitoring; Complete Time: : sp4 02/21 22:22 Order name: Vital Signs; Complete Time: 23:43 sp4 EC/24 22:20 Rate is 100 beats/min. Rhythm is regular, Normal Sinus Rhythm. QRS Bynum is Normal. MO sp4 interval is normal. QRS interval is prolonged. QT interval is normal. No Q waves. T waves are Normal. No ST changes noted. Clinical impression: No evidence of ischemia. Interpreted by me. Reviewed by me. Administered Medications: 02/22 00:24 Drug: Cefepime IVPB 2 grams IVPB at 200 ml/hr once over 30 mins; (mix in NS 100 mL) vc1 Route: IVPB; Rate: 200 ml/hr; Infused Over: 30 mins; Site: right wrist; 00:54 Follow up: IV Status: Completed infusion; IV Intake: 100ml vc1 00:25 Drug: Albuterol Inhalation 2.5 mg Inhalation once Route: Inhalation; vc1 00:25 Drug: Albuterol Inhalation 2.5 mg Inhalation once Route: Inhalation; vc1 00:25 Drug: NS 0.9% IV 1000 ml IV at 125 ml/hr continuous Route: IV; Rate: 125 ml/hr; Site: vc1 right wrist; 05:23 Follow up: IV Status: Infusion continued upon transfer; IV Intake: 500ml vc1 02:47 Drug: Albumin IVPB 25 grams 100 ml IVPB once; (Note: Albumin 25% concentration) Volume: vc1 100 ml; Route: IVPB; Site: left forearm; 04:27 Follow up: IV Status: Completed infusion; IV Intake: 100ml vc1 02:48 Drug: vancoMYCIN IVPB 2 grams IVPB at calculated rate once Route: IVPB; Rate: vc1 calculated rate; Site: right wrist; 05:23 Follow up: IV Status: Completed infusion; IV Intake: 500ml vc1 02:50 Drug: Calcium Gluconate IVPB 2 grams IVPB once over 60 mins; (mix in NS 100 mL) Route: vc1 IVPB; Infused Over: 60 mins; Site: left forearm; 03:50 Follow up: IV Status: Completed infusion; IV Intake: 100ml vc1 03:39 Drug: Albumin IVPB 25 grams 100 ml IVPB once; (Note: Albumin 25% concentration) Volume: vc1 100 ml; Route: IVPB; Site: right antecubital; 04:39 Follow up: IV Status: Completed infusion; IV Intake: 100ml vc1 Disposition: 02:40 Critical Care:. sp4 Disposition Summary: 02/23/24 02:38 Transfer Ordered Notes: Transfer Location: [facility] sp4 Reason: Higher level of care sp4 Condition: Stable sp4 Problem: new sp4 Symptoms: have improved sp4 Accepting Physician: [facility] fish dressing machine feeder, (02/23/24 06:24) vc1 Diagnosis - Antineoplastic chemotherapy induced pancytopenia sp4 - Symptomatic anemia, chemotherapy related pancytopenia, acute left lower lung sp4 pneumonia, lysed weakness, hyponatremia, paraneoplastic syndrome, Stage IIIc lung cancer Forms: - Medication Reconciliation Form sp4 - SBAR form sp4 Critical care time excluding procedures: 02:40 Critical care time: Bedside Care: 36 minutes, Consultation: 12 minutes, Family sp4 Intervention: 12 minutes. Total time: 60 minutes Signatures: Dispatcher [employer] EDPhylicia Elliott RN RN vc1 William Villafana MD MD sp4 Corrections: (The following items were deleted from the chart) 02/21 22:25 22:25 Chest Single View+RAD.RAD.BRZ ordered. EDMS EDMS 02/22 01:00 01:00 TYPE AND SCREEN+BB.LAB.BRZ ordered. EDMS EDMS 02:54 02/21 23:35 PACKED RBC LEUKORED+BB.LAB.BRZ ordered. EDMS EDMS 02/22 02:54 02/21 23:37 ABO/RH typing ordered. EDMS EDMS 02/22 02:54 02/21 23:37 Antibody Screen ordered. EDMS EDMS 02/22 06:24 02:38 [facility] fish dressing machine feeder, sp4 vc1
[2024-02-23] MEDS ORDERED: CALCIUM GLUCONATE 1 GM IVPB 2 GM/100 ML BAG IV ONE (02:53)
--- NOTE | 2024-02-23 06:23 | RAD REPORT ---
COMPARISON: None. FINDINGS: AP view of the chest was obtained, chest 1 view. Lungs: The lungs are adequately inflated. Bilateral interstitial and patchy airspace opacities are no cruz, greater on the right. Confluent airspace opacities are noted in the lung bases. A right IJ Port-A-Cath is noted. Pleura: No pneumothorax. Tiny bilateral pleural effusions are noted. Heart and Mediastinum: Cardiac silhouette is borderline enlarged. The aorta is atherosclerotic and to rtuous. Bones: No acute bony abnormality.. IMPRESSION: 1. Bilateral interstitial and patchy airspace opacities with confluent airspace opacities in the lung bases. These findings are consistent with multilobar pneumonia. Electronically signed by: Aleksandar Ta MD 02/22/2024 11:28 PM CDT RP Due to temporary technical issues with the PACS/[employer] reporting system, reports are being kat d by the in-house radiologist without review as a courtesy to ensure prompt reporting the interpreting radiologist is fully responsible for the content of the report. Transcribed Date/Time: 02/23/2024 6:23 AM
--- NOTE | 2024-02-23 07:19 | RAD REPORT ---
Clinical Indication: Bed Name: 4; pneumonia Comparison: December 11, 2023 TECHNIQUE: Sequential trans-axial images were obtained through the chest, abdomen and pelvis without iodinated contrast or oral contrast. Coronal and sagittal reconstructions were obtained and provided as separate series. All CT scans at this location are performed using dose optimization techniques as appropriate to perf orm the study. Radiation dose reduction technique was utilized including one or more of the following: Automated exp osure control, adjustment of the mA and/or kV according to patient size and use of iterative reconstruction technique. CT Radiation Dose DLP 1093.8 mGy-cm FINDINGS: CT CHEST: LUNG PARENCHYMA AND PLEURA: Diffuse airspace opacities are noted along the bronchi. Clinical correlat ion for aspiration pneumonia may be helpful. Fibrotic changes are noted in the lungs with subpleural fibrosis/scarring. Mild bronchiectasis is noted in the upper and lower lobes. There are no pleural effusions. There is no pneumothorax. Rounded soft tissue masslike density is noted within the lingula. This can be seen on image 35 of ser ies 201. This measures approximately 6.4 x 4.8 cm in cross-section. This was much smaller and more consolidative-like on kyle or study dated December 11, 2023. This may represent consolidative pneumonia and follow-up is recommended after resolution of acu te symptoms. AIRWAY: The central airway is patent MEDIASTINUM: Enlarged preaortic lymph nodes are noted. The largest can be seen on image 21 of series 201 and measures 2.9 x 2.4 cm in cross-section. Small paratracheal lymph nodes are noted. HEART: The heart is normal in size.. There is trace pericardial effusion. VASCULAR STRUCTURES: The pulmonary arteries and great vessels are normal in caliber. The thoracic aor ta is normal in caliber. The superior vena cava is unremarkable. OSSEOUS STRUCTURES: There are no acute osseous abnormalities seen. ESOPHAGUS: No gross abnormalities. CTABDOMEN/PELVIS: NON-CONTRAST ENHANCED SOLID ORGANS: LIVER: Unremarkable. GALLBLADDER: The gallbladder is contracted INTRAHEPATIC BILE DUCTAND EXTRAHEPATIC BILE DUCT: Unremarkable. PANCREAS: Unremarkable. SPLEEN: Unremarkable. ADRENALS: Unremarkable. [address], [facility] [id number] Final Radiology Report Name: RANJAN ULRICH Age: 73y Date: 02/23/2024 12:04 AM : 1950 Study: Chest Abd Pelvis Wo Con Requesting Physician: William Villafana [id number] KEYSHA ULRICH Page 1 of 2 [id number] Chest Abd Pelvis Wo Con KIDNEYS: The renal contours are normal. There is no hydronephrosis. No calcified renal stones are not ed. No surrounding fat stranding is noted. STOMACH: Evaluation of the stomach and bowel is limited due to lack of oral contrast. No gross abnorm alities of the stomach are noted. BOWEL: The non-contrast opacified small bowel loops in the abdomen and pelvis appear unremarkable. Th e noncontrast opacified colonic loops in the abdomen and pelvis appear unremarkable. APPENDIX: The appendix is normal in caliber without surrounding inflammatory changes. PERITONEUM AND RETROPERITONEUM: No ascites or free air. No loculated fluid collection noted. The abdo celine aorta is normal in caliber. Moderate atherosclerotic disease is noted in the aortoiliac vessels and their henrik r branches. LYMPH NODES: Unremarkable. PELVIS: No pelvic mass or adenopathy. . The prostate is unremarkable. BLADDER: Unremarkable. OSSEOUS STRUCTURES: No acute abnormality seen. SOFT TISSUES: Unremarkable. IMPRESSION: 1. Findings consistent with pulmonary fibrosis and mild bronchiectasis. 2. Dense consolidation within the lingula and along the bronchi. Clinical correlation for bronchopneu monia or aspiration pneumonia may be helpful. 3. No acute abnormality of the abdomen or pelvis is noted. Electronically signed by: Aleksandar Ta MD 02/23/2024 01:15 AM T This Facsimile may contain PRIVILEGED, CONFIDENTIAL AND/OROTHERWISEPROTECTEDINFORMATIONintended only for the use of the addressee. Unauth Due to temporary technical issues with the PACS/[employer] reporting system, reports are being kat d by the in-house radiologist without review as a courtesy to ensure prompt reporting the interpreting radiologist is fully responsible for the content of the report. Transcribed Date/Time: 02/23/2024 7:19 AM
--- NOTE | 2024-02-23 14:10 | EKG ---
Test Date: 2024-02-23 Test Time: 04:14:43 [employer] Supervisor: JER MEASUREMENT RESULTS: Intervals: Rate: 99 ID: [id number] QRSD: 132 QT: 384 QTc: 492 [place]: P: 46 ID: [id number] QRS: 67 T: 22 INTERPRETIVE STATEMENTS: Normal sinus rhythm Right bundle branch block Abnormal ECG Compared to ECG 02/22/2024 22:20:12 No significant changes Electronically Signed On 02-23-24 14:09:27 CDT by Rudy Storey
--- NOTE | 2024-02-23 14:12 | EKG ---
Test Date: 2024-02-22 Test Time: 22:20:12 Certified Orthoptist: JER MEASUREMENT RESULTS: Intervals: Rate: 100 UT: 192 QRSD: 132 QT: 376 QTc: 485 [place]: P: 45 UT: 192 QRS: 73 T: 11 INTERPRETIVE STATEMENTS: Normal sinus rhythm Right bundle branch block Abnormal ECG No previous ECG available for comparison Electronically Signed On 02-23-24 14:10:35 CDT by Rudy Storey
[2024-02-23 15:36] VITALS: TEMP 97.7
[2024-02-23 15:44] VITALS: BP 120/62; O2SAT 98
== END 2024-02-23 06:24 | disposition short-term general hospital (02) ==
LOC: SUPCPDRO 22:03 → ER 22:03
PROC: 30233N1 Transfusion of Nonautologous Red Blood Cells into Peripheral Vein, Percutaneous Approach (ICD-10-PCS; principal; 2024-02-23)
DX: D61.810 Antineoplastic chemotherapy induced pancytopenia (principal); D64.9 Anemia, unspecified; J18.9 Pneumonia, unspecified organism; G13.0 Paraneoplastic neuromyopathy and neuropathy; E87.1 Hypo-osmolality and hyponatremia; R53.1 Weakness; C34.90 Malignant neoplasm of unspecified part of unspecified bronchus or lung; E11.9 Type 2 diabetes mellitus without complications; I48.91 Unspecified atrial fibrillation
CPT/HCPCS: 93005 ×2; 87040 ×2; 85025; 36415; 86900; 86850; 85610; 86901; 83605; 85730; 86920 ×2; 80053; 71250; 74176; 71045; 82805; 99285; 36600; 94660 ×2; 36430; P9047; J0612; J7613; J0692; P9016 ×2; J7050; J7040; J7030